=== PATIENT | male | born 1955 | race Caucasian/White ===

== ENCOUNTER → 2018-02-26 12:18 | Outpatient (CLI) | payer OTHER, SELFPAY | PROVIDERS: Family Provider Internal Medicine; PCP Internal Medicine; Visit Provider Internal Medicine Hematology & Oncology | DX: C92.41 Acute promyelocytic leukemia, in remission (principal) | CPT/HCPCS: 36569 ==

== ENCOUNTER 2019-01-22 08:52 | Outpatient (CLI) | payer OTHER, SELFPAY ==
[2019-01-22 10:09] VITALS: BP 118/74; PULSE 129; RESP 16; TEMP 37; O2SAT 97
[2019-01-22 10:24] VITALS: BP 110/74; PULSE 127; RESP 16; TEMP 37.3; O2SAT 95
[2019-01-22 11:24] VITALS: BP 116/75; PULSE 118; RESP 16; TEMP 37.2; O2SAT 95
[2019-01-22 12:22] VITALS: BP 118/80; PULSE 118; RESP 16; TEMP 37; O2SAT 95
== END 2019-01-22 12:55 | disposition skilled nursing facility (03) ==
LOC: MEDOUTP 08:54 → MS3 08:56
PROVIDERS: Family Provider Internal Medicine; PCP Internal Medicine; Referring Provider Internal Medicine Hematology & Oncology; Visit Provider Internal Medicine Hematology & Oncology
DX: D64.9 Anemia, unspecified (principal); C92.01 Acute myeloblastic leukemia, in remission
CPT/HCPCS: 36430; 86850; 86900; 86920; 86922; P9040

== ENCOUNTER 2019-02-05 07:52 | Outpatient (CLI) | payer OTHER, SELFPAY ==
[2019-02-05 08:09] VITALS: BP 103/63; PULSE 127; RESP 18; TEMP 37.1; O2SAT 96
[2019-02-05 08:55] VITALS: BP 103/65; PULSE 122; RESP 18; TEMP 37.1; O2SAT 96
[2019-02-05 09:10] VITALS: BP 94/63; PULSE 120; RESP 16; TEMP 37.1; O2SAT 95
[2019-02-05] MEDS: Acetaminophen 325 MG Tablet 650 MG PO (09:45)
[2019-02-05 10:10] VITALS: BP 106/66; PULSE 117; RESP 18; TEMP 36.9; O2SAT 96
[2019-02-05 11:10] VITALS: BP 104/69; PULSE 111; RESP 16; TEMP 37; O2SAT 96
[2019-02-05] MEDS: 0.9% NaCl PICC Flush IV (11:56)
[2019-02-05 12:03] VITALS: BP 106/71; PULSE 108; RESP 16; TEMP 36.9; O2SAT 98
== END 2019-02-05 12:10 | disposition home or self-care (01) ==
LOC: MEDOUTP 07:53 → PCU 07:55
PROVIDERS: Family Provider Internal Medicine; PCP Internal Medicine; Referring Provider Internal Medicine Hematology & Oncology; Visit Provider Internal Medicine Hematology & Oncology
DX: C92.Z0 Other myeloid leukemia not having achieved remission (principal); D64.9 Anemia, unspecified
CPT/HCPCS: 86850; 86900; 86920; 86922; P9040; A4216